=== PATIENT | male | born 1985 | race Caucasian/White ===

== ENCOUNTER 2022-09-29 02:22 | Emergency (ER) | payer OTHER, SELFPAY ==
[2022-09-29 02:36] VITALS: BP 135/82; PULSE 106; RESP 18; TEMP 36.6; O2SAT 98; BMI 27.2
--- NOTE | 2022-09-29 04:03 | W.ED.WOUNDLC ---
HPI - Wound/Laceration General: Chief Complaint: Wound/Laceration Stated Complaint: Left hand injury Time Seen by Provider: 09/29/22 02:49 Source: patient History of Present Illness: 37-year-old male who was using a razor knife earlier in the evening. He sliced the dorsum of his left hand in the webspace. Bleeding is controlled. Tetanus is up-to-date as of 2 years ago. Onset (ago): hour(s) Extremity Location: Left: hand Place: home Patient tetanus UTD: Yes Context: accidental Associated symptoms: Denies chills, fever(s), foreign body sensation, inability to move or nausea Review of Systems Const: Denies: fever(s) or chills GI: Denies: nausea Physical Exam Const: COMMON NORMALS: no acute distress and alert HENMT: COMMON NORMALS: normocephalic and atraumatic HEAD & SCALP: normocephalic and atraumatic Eye: COMMON NORMALS: Equal, round and reactive pupils present and EOMs intact bilaterally PUPIL: Yes Equal, round and reactive pupils present Neck/C-Spine: COMMON NORMALS: full ROM Chest: CHEST: Yes Symmetrical chest wall rise Resp: COMMON NORMALS: normal respiratory effort and No use of accessory muscles Cardio: COMMON NORMALS: regular rate and regular rhythm RATE: regular rate RHYTHM: regular rhythm Extremity: NARRATIVE EXTREMITY EXAM: Movement of the thumb including abduction abduction flexion extension are intact Neuro: SENSORIUM/ORIENTATION: Yes alert OTHER: Sensation intact distally Psych: COMMON NORMALS: cooperative Skin: NARRATIVE SKIN EXAM: Sick centimeter laceration to the dorsal webspace of the left hand. Bleeding is controlled. Linear laceration. Procedures Laceration Laceration 1: Site: hand Side (If applicable): left Size (cm): 6 Description: linear Depth: simple, single layer Local Anesthetic: lidocaine 1% Amount of anesthesia used (mL): 6 Pre-repair: wound explored and irrigated extensively Skin layer closed with: nylon Size (cm): 4-0 Number of sutures: 7 Technique: simple, interrupted Course Vital Signs: Vital signs: Vital Signs Temperature 98 F 09/29/22 02:36 Pulse Rate 106 H 09/29/22 02:36 Respiratory Rate 18 09/29/22 02:36 Blood Pressure 135/82 09/29/22 02:36 Pulse Oximetry 98 09/29/22 02:36 MDM - Wound/Laceration Medical Decision Making Laceration repaired. No complication. Tetanus is up-to-date. Instructions given. Discharge Plan Discharge Patient Disposition: Home Clinical Impression: Laceration of hand, left Condition: Stable Discharge Orders: Discharge ED (Routine); Ordered 09/29/22 Ordered By: Hernan Sol Patient Instructions: Laceration (ED) Activity Restrictions/Additional Instructions: Keep dry for the next 12 hours. Wash with soap and running water. Do not soak. Sutures out in 7 to 10 days by healthcare provider. Return for worsening pain, swelling, drainage, other concerning symptoms. Coding Level of Care Code ED Flower Machine Operator for Rosalba Boss
== END 2022-09-29 03:50 | disposition home or self-care (01) ==
PROVIDERS: Emergency Provider Emergency Medicine
DX: S61.412A Laceration without foreign body of left hand, initial encounter (principal); W26.0XXA Contact with knife, initial encounter
CPT/HCPCS: 12002; 99282

== ENCOUNTER 2022-11-11 06:01 | Emergency (ER) | payer OTHER, SELFPAY ==
[2022-11-11 06:10] VITALS: BP 129/88; PULSE 110; RESP 20; TEMP 36.8; O2SAT 96; BMI 27.3
[2022-11-11 06:11] VITALS: BP 129/88; PULSE 106; RESP 16; O2SAT 98
--- NOTE | 2022-11-11 07:00 | XR_ITS ---
WS: [id number] Right knee, 3 views, 11/11/2022 Clinical Data: pain/trauma Comparison: None. Findings: No fractures or dislocations are seen. The joint spaces are normal. The patella is intact. There is s oft tissue swelling over the patella which may represent edema and/or infection.. XR/XR knee RT 3V* [id number] Impression: Soft tissue swelling over the right patella. Kellgren-Ray Classification: NA
--- NOTE | 2022-11-11 07:07 | ED_ITS ---
HPI - Skin/Abscess/Foreign Bdy General: Chief complaint: Skin/Abscess/Foreign Body Stated complaint: right knee pain Time Seen by Provider: 11/11/22 06:41 Source: patient Mode of arrival: ambulatory History of Present Illness: 37-year-old male presents emergency room complaining of right knee pain. About a week and a half ago he hit it with a sledgehammer when it glanced off of the stake that he was driving in. Some mild redness tenderness and swelling over that area. Said he had a temp at home of up to 102. Knee is painful to palpation and painful if he tries to kneel down on it. Its not had any drainage. He has been ambulatory on it. No previous injury to the knee. MD complaint: lesion Onset (ago): week(s) (1-2) Location: RLE (Knee) Severity: mild Quality: aching Pain Consistency: constant Relieving factors: none Exacerbating factors: palpation Context: other (Direct blow) Associated symptoms: Reports arthralgias and fever(s); Deny chills, cough, itching, myalgias, nausea, rigidity or vomiting Treatments prior to arrival: none Review of Systems Const: Reports: fever(s); Denies: chills ENMT: Denies: throat pain, ear or mastoid pain, nasal discharge or nasal congestion Card: Denies: chest pain, palpitations, irregular heart rhythm, edema, dyspnea on exertion or orthopnea Resp: Denies: dyspnea, productive cough or non-productive cough GI: Denies: abdominal pain, nausea or vomiting : Denies: flank pain, difficulty urinating, dysuria, urinary frequency or urinary urgency Skin/Breast: Denies: rash or pruritus PFSH ED PFSH: Social History (Updated 11/11/22 @ 07:11 by Romel Roman DO) Smoking and tobacco status: current every day smoker e-cigarettes Physical Exam Const: COMMON NORMALS: no acute distress GENERAL APPEARANCE: cooperative and comfortable ORIENTATION/CONSCIOUSNESS: Yes awake, Yes oriented to person, Yes oriented to place and Yes oriented to time HENMT: COMMON NORMALS: normocephalic, atraumatic and hearing grossly normal bilaterally HEAD & SCALP: normocephalic and atraumatic Lymph: LYMPHATIC: no lymphadenopathy noted and no lymphedema noted Resp: COMMON NORMALS: normal respiratory effort, No retractions, No use of accessory muscles and clear to auscultation bilaterally AUSCULTATION: clear to auscultation bilaterally Cardio: COMMON NORMALS: regular rate, regular rhythm and No murmurs present (Cardio) RATE: regular rate RHYTHM: regular rhythm GI: COMMON NORMALS: Soft to palpation and No hepatosplenomegaly present AUS CULTATION: Yes normoactive bowel sounds PALPATION: Yes Soft to palpation, No Tenderness to palpation present (GI), No Guarding due to palpation present (GI) and Yes No hepatosplenomegaly present Extremity: COMMON NORMALS: normal to inspection, capillary refill normal, no clubbing, cyanosis or edema, no calf tenderness and no pedal edema OTHER: Moderate prepatellar bursal swelling on the right knee with some abrasions no erythema or induration no significant swelling lymph nodes in the popliteal fossa Neuro: SENSORIUM/ORIENTATION: Yes oriented to person, Yes oriented to place and Yes oriented to time Skin: COMMON NORMALS: no rashes or lesions noted GENERAL SKIN EXAM: no rashes or lesions noted Course Vital Signs: Vital signs: Vital Signs Temperature 98.2 F 11/11/22 06:10 Pulse Rate 102 H 11/11/22 08:12 Respiratory Rate 16 11/11/22 06:11 Blood Pressure 129/88 11/11/22 06:11 Pulse Oximetry 98 11/11/22 08:12 Oxygen Delivery Me thod 11/11/22 06:10 MDM - Skin/Abscess/Foreign Bdy Medicial Decision Making No acute fractures on x-ray there is some soft tissue swelling on exam there is some prepatellar bursal swelling there are some abrasions over to relatively minor not fluctuant. Discharge home ice diclofenac can elevate leg short round of cephalexin recheck primary care or Ortho if not improving Medical Records I reviewed the patient's medical records. Lab Data I reviewed the patient's lab results. 11/11/22 07:15 11/11/22 07:15 Radiology Impressions Knee X-Ray 11/11/22 07:00 Impression: Soft tissue swelling over the right patella. Kellgren-Ray Classification: NA Laboratory Results WBC 11.7 10^3/uL (4.0-10.0) H 11/11/22 07:15 RBC 4.78 10^6/uL (4.1-5.3) 11/11/22 07:15 Hgb 13.7 g/dL (11.7-16.6) 11/11/22 07:15 Hct 41.6 % (42.0-52.0) L 11/11/22 07:15 MCV 87.0 fl (80-94) 11/11/22 07:15 MCH 28.7 pg (28.0-34.0) 11/11/22 07:15 MCHC 32.9 g/dL (30.0-36.0) 11/11/22 07:15 RDW 12.8 % (12.1-15.1) 11/11/22 07:15 Plt Count 367 10^3/cmm (130-400) 11/11/22 07:15 MPV 8.2 fL (7.4-10.4) 11/11/22 07:15 Neut % (Auto) 60.3 % 11/11/22 07:15 Lymph % (Auto) 27.7 % 11/11/22 07:15 [place] % (Auto) 8.6 % 11/11/22 07:15 Eos % (Auto) 2.4 % 11/11/22 07:15 Baso % (Auto) 0.7 % 11/11/22 07:15 Neut # (Auto) 7.03 10^3/uL (1.8-7.7) 11/11/22 07:15 Lymph # (Auto) 3.2 10^3/uL (0.8-4.8) 11/11/22 07:15 [place] # (Auto) 1.0 10^3/uL (0.2-0.9) H 11/11/22 07:15 Eos # (Auto) 0.3 10^3/uL (0.0-0.8) 11/11/22 07:15 Baso # (Auto) 0.1 10^3/uL (0.0-0.1) 11/11/22 07:15 Nucleated RBC % (auto) 0 % 11/11/22 07:15 Nucleated RBCs # 0.0 /100WBC 11/11/22 07:15 Sodium 140 mmol/L (136-145) 11/11/22 07:15 Potassium 4.2 mmol/L (3.5-5.1) 11/11/22 07:15 Chloride 104 mmol/L (98-107) 11/11/22 07:15 Carbon Dioxide 28 mmol/L (22-29) 11/11/22 07:15 Anion Gap 12.2 (5-19) 11/11/22 07:15 BUN 14 mg/dL (6-20) 11/11/22 07:15 Creatinine 1.1 mg/dL (0.7-1.2) 11/11/22 07:15 GFR Calculation 75.3 mL/min (90-130) L 11/11/22 07:15 Glucose 106 mg/dL (65-115) 11/11/22 07:15 Calculated Osmolality 291 mOsm/kg (285-295) 11/11/22 07:15 Calcium 8.8 mg/dL (8.5-10.5) 11/11/22 07:15 Discharge Plan Discharge Patient Disposition: Home Clinical Impression: Bursitis, prepatellar, Cellulitis of knee, right Prescriptions: New diclofenac sodium 75 mg tablet,delayed release (DR/EC) 75 mg PO Q12H PRN (Reason: pain) Qty: 20 0RF cephalexin 750 mg capsule 750 mg PO BID 7 Days Qty: 14 0RF Discharge Orders: Discharge ED (Routine); Ordered 11/11/22 Ordered By: Romel Roman Discharge Diet: Usual diet Discharge Activity: Resume usual activity Patient Instructions: Opioid Safety, Pain Management Activity Restrictions/Additional Instructions: Follow-up with your primary care doctor to reevaluate the prepatellar bursitis if not improving with anti-inflammatories if the redness or inflammation increases despite the antibiotics be rechecked. Coding Level of Care Code ED Dental Appliance Mechanic for Rosalba Fwd Exam Comprehensive
[2022-11-11 07:22] LABS: Basophils # 0.1 10^3/uL (0.0-0.1); Basophils % 0.7 %; Eosinophils # 0.3 10^3/uL (0.0-0.8); Eosinophils % 2.4 %; Hematocrit 41.6 % (42.0-52.0); Hemoglobin 13.7 g/dL (11.7-16.6); Lymphocytes # 3.2 10^3/uL (0.8-4.8); Lymphocytes % 27.7 %; Mean Corpuscular HGB Conc 32.9 g/dL (30.0-36.0); Mean Corpuscular Hemoglobin 28.7 pg (28.0-34.0); Mean Platelet Volume 8.2 fL (7.4-10.4); Monocytes % 8.6 %; Neutrophils # 7.03 10^3/uL (1.8-7.7); Neutrophils % 60.3 %; Nucleated Red Blood Cells % 0 %; Platelet Count 367 10^3/cmm (130-400); Red Blood Count 4.78 10^6/uL (4.1-5.3); Red Cell Distribution Width 12.8 % (12.1-15.1); White Blood Count 11.7 10^3/uL (4.0-10.0)
[2022-11-11 07:52] LABS: Anion Gap 12.2 (5-19); Blood Urea Nitrogen 14 mg/dL (6-20); Calcium 8.8 mg/dL (8.5-10.5); Carbon Dioxide 28 mmol/L (22-29); Chloride 104 mmol/L (98-107); Glomerular Filtration Rate 75.3 mL/min (90-130); Glucose 106 mg/dL (65-115); Osmolality Calculated 291 mOsm/kg (285-295); Potassium 4.2 mmol/L (3.5-5.1); Sodium 140 mmol/L (136-145)
[2022-11-11 08:12] VITALS: PULSE 102; O2SAT 98
== END 2022-11-11 08:14 | disposition home or self-care (01) ==
PROVIDERS: Emergency Provider Family Medicine
DX: M70.41 Prepatellar bursitis, right knee (principal); L03.115 Cellulitis of right lower limb; F17.290 Nicotine dependence, other tobacco product, uncomplicated
CPT/HCPCS: 73562; 80048; 85025; 99284

== ENCOUNTER 2023-11-10 12:05 | Emergency (ER) | payer OTHER, SELFPAY ==
[2023-11-10 12:38] VITALS: BP 163/96; PULSE 107; RESP 15; TEMP 36.9; O2SAT 99; BMI 30.7
--- NOTE | 2023-11-10 13:25 | ED_ITS ---
HPI - Wound/Laceration General: Chief Complaint: Wound/Laceration Stated Complaint: laceration left hand Time Seen by Provider: 11/10/23 13:05 Source: patient Mode of arrival: ambulatory Limitations: no limitations History of Present Illness: Patient is a 38-year-old male who presents to ED today for evaluation of a laceration to his left hand/thumb that he sustained just prior to arrival after he was using a saw and accidentally cut the extremity. Bleeding is controlled. His tetanus is up-to-date. He denies numbness, tingling, loss of sensation to his hand or digits. He has no other complaints or injuries at this time. Extremity Location: Left: hand Place: home Patient tetanus UTD: Yes Context: accidental Associated symptoms: Reports no associated symptoms Treatments prior to arrival: bandage Review of Systems Musc: Reports: extremity pain (L hand) Skin/Breast: Reports: other (laceration L hand) Neuro: Denies: numbness in extremities or weakness in extremities [facility] ED PFSH: Social History Smoking and tobacco/nicotine status: current every day tobacco/nicotine user e- cigarettes Physical Exam Const: COMMON NORMALS: no acute distress, average body habitus, no limitations, healthy appearing, alert and well nourished Extremity: COMMON NORMALS: full ROM, capillary refill normal, no joint enlargement, no clubbing, cyanosis or edema and no pedal edema GENERAL: Yes normal exam except as noted LEFT UPPER EXTREMITY: Yes hand & digits (3cm laceration to radial side of L thumb; no bleeding) Left hand and digits: Yes ROM (normal), Yes neurovascular exam (normal) and Yes tendon exam (no tendon involvement noted ) Neuro: COMMON NORMALS: moves all extremities, no focal motor deficits and no sensory deficits noted SENSORIUM/ORIENTATION: Yes alert Skin: TRAUMA: laceration Procedures Laceration Laceration 1: Site: hand Side (If applicable): left Size (cm): 3.0 Description: linear and irregular Depth: simple, single layer Local Anesthetic: lidocaine 1% Amount of anesthesia used (mL): 4.0 Pre-repair: wound explored and irrigated extensively Skin layer closed with: nylon Size (cm): 4-0 Number of sutures: 6 Technique: simple, interrupted Course Vital Signs: Vital signs: Vital Signs Temperature 98.4 F 11/10/23 12:38 Pulse Rate 107 H 11/10/23 12:38 Respiratory Rate 15 11/10/23 12:38 Blood Pressure 163/96 11/10/23 12:38 Pulse Oximetry 99 11/10/23 12:38 Oxygen Delivery Me thod Room Air 11/10/23 12:38 MDM - Wound/Laceration Medical Decision Making Wound was copiously irrigated and repaired as documented. Patient declined XR imaging. Tetanus is up-to-date. Wound care/infection precautions discussed. Differential Diagnosis Likely laceration Medical Records I reviewed the patient's medical records. No radiology studies performed this visit Discharge Plan Discharge Patient Disposition: Home Clinical Impression: Laceration of hand, left Qualifiers: Encounter type: initial encounter Foreign body presence: without foreign body Qualified Code(s): S61.412A - Laceration without foreign body of left hand, initial encounter Condition: Stable Prescriptions: No Action diclofenac sodium 75 mg tablet,delayed release (DR/EC) 75 mg PO Q12H PRN (Reason: pain) Qty: 20 0RF Discharge Orders: Discharge ED (Routine); Ordered 11/10/23 Ordered By: Celina Mcdonough Patient Instructions: Care For Your Stitches (DC), Laceration (DC) Activity Restrictions/Additional Instructions: Keep wound/laceration clean with warm soap and water twice daily. Monitor for signs of infection such as redness, swelling, increased pain, or drainage. Please seek medical re-evaluation if these occur. If you received sutures today these will need to be removed (unless you were told by the provider that they are absorbable). The provider should have discussed with you the length of time until removal-7 DAYS. You may return to the emergency department for this service. Coding Level of Care Code ED Assistant Professor Of Archaeology for Rosalba Boss
[2023-11-10 13:46] VITALS: BP 134/84; PULSE 82; O2SAT 100
== END 2023-11-10 13:51 | disposition home or self-care (01) ==
PROVIDERS: Emergency Provider Physician Assistant
DX: S61.412A Laceration without foreign body of left hand, initial encounter (principal); F17.290 Nicotine dependence, other tobacco product, uncomplicated; W27.0XXA Contact with workbench tool, initial encounter
CPT/HCPCS: 12002; 99282

== ENCOUNTER 2024-04-25 17:32 | Observation (INO) | payer OTHER, BC, MEDICAID, SELFPAY ==
[2024-04-25] VITALS (24 sets, daily range): BP systolic 99–134; BP diastolic 57–91; PULSE 64–80; RESP 14–18; TEMP 36.1–37.2; O2SAT 94–100; BMI 33.5
--- NOTE | 2024-04-25 17:51 | W.ED.WOUNDLC ---
Documented by User: Romel Roman DO 04/26/24 07:01 HPI - Wound/Laceration General: Chief Complaint: Wound/Laceration Stated Complaint: leg lac Time Seen by Provider: 04/25/24 17:42 Source: patient Mode of arrival: ambulatory History of Present Illness: 39-year-old this is male presents to the emergency room after an accident with a skill saw he was using to try to cut a tree branch. He cut through the distal portion of his left upper leg with a skill saw. On arrival he is actively bleeding staff applied a tourniquet in the triage area. He is unsure of his last tetanus he denies any other injury. Onset (ago): minute(s) Place: home Context: accidental Review of Systems Card: Denies: chest pain GI: Denies: abdominal pain PFSH ED PFSH: Social History Smoking and tobacco/nicotine status: current every day tobacco/nicotine user e-cigarettes Physical Exam Const: GENERAL APPEARANCE: cooperative and comfortable ORIENTATION/CONSCIOUSNESS: Yes awake, Yes oriented to person, Yes oriented to place and Yes oriented to time HENMT: COMMON NORMALS: normocephalic, atraumatic and hearing grossly normal bilaterally HEAD & SCALP: normocephalic and atraumatic Resp: COMMON NORMALS: normal respiratory effort, No retractions, No use of accessory muscles and clear to auscultation bilaterally AUSCULTATION: clear to auscultation bilaterally Cardio: COMMON NORMALS: regular rate, regular rhythm and No murmurs present (Cardio) RATE: regular rate RHYTHM: regular rhythm GI: COMMON NORMALS: Soft to palpation and No hepatosplenomegaly present AUSCULTATION: Yes normoactive bowel sounds PALPATION: Yes Soft to palpation, No Tenderness to palpation present (GI), No Guarding due to palpation present (GI) and Yes No hepatosplenomegaly present Extremity: OTHER: Large laceration on the anterior left thigh just proximal to the knee. Does not appear to involve the knee joint itself is entirely proximal to that there is exposed tendon and muscle belly of the quadriceps. Tourniquet is in place when patient arrives in the trauma room. There is no active bleeding there is quite a bit of blood on his clothing clothing was removed tourniquet removed no active bleeding or arterial spurts noted wound was packed with quick clot and a bulky ABD bandage was applied and secured with pressure using Coban. Neuro: SENSORIUM/ORIENTATION: Yes oriented to person, Yes oriented to place and Yes oriented to time Skin: COMMON NORMALS: no rashes or lesions noted GENERAL SKIN EXAM: no rashes or lesions noted Course Vital Signs: Vital signs: Vital Signs Temperature 97.6 F 04/26/24 04:00 Pulse Rate 77 04/26/24 06:08 Respiratory Rate 17 04/26/24 04:00 Blood Pressure 118/74 04/26/24 06:08 Pulse Oximetry 96 04/26/24 06:08 Oxygen Delivery Me thod Room Air 04/25/24 22:54 Oxygen Flow Rate 6 04/25/24 21:38 MDM - Wound/Laceration Medical Decision Making Large laceration to the distal lower leg this based on exam and its apparent depth and extent the superior portion of the patellar tendon of the quadriceps has been severed. There is no apparent vascular injury, no significant bleeding when tourniquet was released. Patient was taken from the trauma room shortly after the wound was packed with quick clot and bandaged with a bulky compression bandage. No active bleeding dorsalis pedis and posterior tibialis pulses intact easily palpable and strong. Patient to CT for CTA of the left lower extremity. Care signed out to Dr. Mireles at change of shift. See final notes for diagnosis and disposition. Dr. Garcia notified and plan for him to take to the OR for washout and closure. Lab Data 04/25/24 17:43 04/25/24 17:58 Radiology Impressions Lower Extremity CTA 04/25/24 17:59 IMPRESSION: 1. Laceration over the anterior portion of the distal thigh involving the anterior portion of the quadriceps muscle with skin defects, soft tissue emphysema and probable small area of active bleeding or small artery damage. Axial series 4, images 47-453. Coronal series 6, images 185-189. 2. Intact superficial femoral artery which is 3.7 cm deep to the posterior aspect of the laceration. ADDENDUM: 04/25/241936 Impression: 3. During the original interpretation, only axial images were available. 4. Now the axial images are no longer available but there are now 5 mm coronal oblique and sagittal oblique images for interpretation. Laboratory Results WBC 12.93 10^3/uL (3.29-11.43) H 04/25/24 17:43 RBC 5.01 10^6/uL (3.85-5.65) 04/25/24 17:43 Hgb 14.60 g/dL (11.27-16.99) 04/25/24 17:43 Hct 42.7 % (37-53) 04/25/24 17:43 MCV 85.2 fl (82-101) 04/25/24 17:43 MCH 29.1 pg (27-33) 04/25/24 17:43 MCHC 34.2 g/dL (30-55) 04/25/24 17:43 RDW 13.2 % (12.1-15.1) 04/25/24 17:43 Plt Count 395 10^3/cmm (157-399) 04/25/24 17:43 MPV 8.7 fL (7.4-10.4) 04/25/24 17:43 Neut % (Auto) 39.7 % 04/25/24 17:43 Lymph % (Auto) 43.5 % 04/25/24 17:43 [place] % (Auto) 11.6 % 04/25/24 17:43 Eos % (Auto) 4.2 % 04/25/24 17:43 Baso % (Auto) 0.8 % 04/25/24 17:43 Neut # (Auto) 5.15 10^3/uL (1.8-7.7) 04/25/24 17:43 Lymph # (Auto) 5.6 10^3/uL (0.8-4.8) H 04/25/24 17:43 [place] # (Auto) 1.5 10^3/uL (0.2-0.9) H 04/25/24 17:43 Eos # (Auto) 0.5 10^3/uL (0.0-0.8) 04/25/24 17:43 Baso # (Auto) 0.1 10^3/uL (0.0-0.1) 04/25/24 17:43 Nucleated RBC % (auto) 0 % 04/25/24 17:43 Nucleated RBCs # 0.0 /100WBC 04/25/24 17:43 PT 13.60 SECONDS (12.1-14.9) 04/25/24 17:58 INR 1.01 (0.8-1.2) 04/25/24 17:58 APTT 25.5 SECONDS (23.9-36.7) 04/25/24 17:58 Sodium 135 mmol/L (136-145) L 04/25/24 17:58 Potassium 3.8 mmol/L (3.5-5.1) 04/25/24 17:58 Chloride 98 mmol/L (98-107) 04/25/24 17:58 Carbon Dioxide 28 mmol/L (22-29) 04/25/24 17:58 Anion Gap 12.8 (5-19) 04/25/24 17:58 BUN 13 mg/dL (6-20) 04/25/24 17:58 Creatinine 1.1 mg/dL (0.7-1.2) 04/25/24 17:58 GFR Calculation 74.5 mL/min (90-130) L 04/25/24 17:58 Glucose 120 mg/dL (65-115) H 04/25/24 17:58 Calculated Osmolality 281 mOsm/kg (285-295) L 04/25/24 17:58 Calcium 8.3 mg/dL (8.5-10.5) L 04/25/24 17:58 Total Bilirubin 0.3 mg/dL (0.15-1.2) 04/25/24 17:58 AST 12 U/L (0-40) 04/25/24 17:58 ALT 15 U/L (0-41) 04/25/24 17:58 Alkaline Phosphatase 77 U/L (40-130) 04/25/24 17:58 Total Protein 6.0 g/dL (6.6-8.7) L 04/25/24 17:58 Albumin 3.7 g/dL (3.5-5.2) 04/25/24 17:58 Globulin 2.3 g/dL (1.3-4.6) 04/25/24 17:58 Discharge Plan Discharge Patient Disposition: Admitted As Inpatient Admit Provider: Alan Garcia Clinical Impression: Laceration Condition: Stable Discharge Diet: Advance as tolerated Discharge Activity: Limit activity as instructed Coding Level of Care Code ED Director Of Gift Planning for Chg Fwd Documented by User: Denis Mireles DO 04/26/24 04:11 HPI - Wound/Laceration General: Chief Complaint: Wound/Laceration Stated Complaint: leg lac Time Seen by Provider: 04/25/24 17:42 PFSH ED PFSH: Social History Smoking and tobacco/nicotine status: current every day tobacco/nicotine user e-cigarettes Course Vital Signs: Vital signs: Vital Signs Temperature 97.6 F 04/26/24 04:00 Pulse Rate 77 04/26/24 06:08 Respiratory Rate 17 04/26/24 04:00 Blood Pressure 118/74 04/26/24 06:08 Pulse Oximetry 96 04/26/24 06:08 Oxygen Delivery Me thod Room Air 04/25/24 22:54 Oxygen Flow Rate 6 04/25/24 21:38 MDM - Wound/Laceration Medical Decision Making Large laceration to the distal lower leg this based on exam and its apparent depth and extent the superior portion of the patellar tendon of the quadriceps has been severed. There is no apparent vascular injury patient was taken from the trauma room shortly after the wound was packed and bandaged to CT for CTA of the left lower extremity. Care signed out to Dr. Mireles at change of shift. See final notes for diagnosis and disposition. Dr. Garcia notified and plan for him to take to the OR for washout and closure. Lab Data 04/25/24 17:43 04/25/24 17:58 Radiology Impressions Lower Extremity CTA 04/25/24 17:59 IMPRESSION: 1. Laceration over the anterior portion of the distal thigh involving the anterior portion of the quadriceps muscle with skin defects, soft tissue emphysema and probable small area of active bleeding or small artery damage. Axial series 4, images 47-453. Coronal series 6, images 185-189. 2. Intact superficial femoral artery which is 3.7 cm deep to the posterior aspect of the laceration. ADDENDUM: 04/25/241936 Impression: 3. During the original interpretation, only axial images were available. 4. Now the axial images are no longer available but there are now 5 mm coronal oblique and sagittal oblique images for interpretation. Laboratory Results WBC 12.93 10^3/uL (3.29-11.43) H 04/25/24 17:43 RBC 5.01 10^6/uL (3.85-5.65) 04/25/24 17:43 Hgb 14.60 g/dL (11.27-16.99) 04/25/24 17:43 Hct 42.7 % (37-53) 04/25/24 17:43 MCV 85.2 fl (82-101) 04/25/24 17:43 MCH 29.1 pg (27-33) 04/25/24 17:43 MCHC 34.2 g/dL (30-55) 04/25/24 17:43 RDW 13.2 % (12.1-15.1) 04/25/24 17:43 Plt Count 395 10^3/cmm (157-399) 04/25/24 17:43 MPV 8.7 fL (7.4-10.4) 04/25/24 17:43 Neut % (Auto) 39.7 % 04/25/24 17:43 Lymph % (Auto) 43.5 % 04/25/24 17:43 [place] % (Auto) 11.6 % 04/25/24 17:43 Eos % (Auto) 4.2 % 04/25/24 17:43 Baso % (Auto) 0.8 % 04/25/24 17:43 Neut # (Auto) 5.15 10^3/uL (1.8-7.7) 04/25/24 17:43 Lymph # (Auto) 5.6 10^3/uL (0.8-4.8) H 04/25/24 17:43 [place] # (Auto) 1.5 10^3/uL (0.2-0.9) H 04/25/24 17:43 Eos # (Auto) 0.5 10^3/uL (0.0-0.8) 04/25/24 17:43 Baso # (Auto) 0.1 10^3/uL (0.0-0.1) 04/25/24 17:43 Nucleated RBC % (auto) 0 % 04/25/24 17:43 Nucleated RBCs # 0.0 /100WBC 04/25/24 17:43 PT 13.60 SECONDS (12.1-14.9) 04/25/24 17:58 INR 1.01 (0.8-1.2) 04/25/24 17:58 APTT 25.5 SECONDS (23.9-36.7) 04/25/24 17:58 Sodium 135 mmol/L (136-145) L 04/25/24 17:58 Potassium 3.8 mmol/L (3.5-5.1) 04/25/24 17:58 Chloride 98 mmol/L (98-107) 04/25/24 17:58 Carbon Dioxide 28 mmol/L (22-29) 04/25/24 17:58 Anion Gap 12.8 (5-19) 04/25/24 17:58 BUN 13 mg/dL (6-20) 04/25/24 17:58 Creatinine 1.1 mg/dL (0.7-1.2) 04/25/24 17:58 GFR Calculation 74.5 mL/min (90-130) L 04/25/24 17:58 Glucose 120 mg/dL (65-115) H 04/25/24 17:58 Calculated Osmolality 281 mOsm/kg (285-295) L 04/25/24 17:58 Calcium 8.3 mg/dL (8.5-10.5) L 04/25/24 17:58 Total Bilirubin 0.3 mg/dL (0.15-1.2) 04/25/24 17:58 AST 12 U/L (0-40) 04/25/24 17:58 ALT 15 U/L (0-41) 04/25/24 17:58 Alkaline Phosphatase 77 U/L (40-130) 04/25/24 17:58 Total Protein 6.0 g/dL (6.6-8.7) L 04/25/24 17:58 Albumin 3.7 g/dL (3.5-5.2) 04/25/24 17:58 Globulin 2.3 g/dL (1.3-4.6) 04/25/24 17:58 All radiology interpretation(s) finalized by discharge Discharge Plan Discharge Patient Disposition: Admitted As Inpatient Admit Provider: Alan Garcia Clinical Impression: Laceration Condition: Stable Discharge Diet: Advance as tolerated Discharge Activity: Limit activity as instructed Coding Level of Care Code ED Director Of Gift Planning for Rosalba Boss
[2024-04-25] MEDS: sodium chloride 0.9% 1,000 ML 999 ML IV (17:59)
[2024-04-25] MEDS: morphine 4 mg/mL SDV 1 mL IVP ×2 (17:59)
--- NOTE | 2024-04-25 17:59 | CTR_ITS ---
PROCEDURE INFORMATION: Exam: CTA Left Lower Extremity With Contrast Exam date and time: 04/25/2024 5:47 PM Age: 39 years old Clinical indication: Injury or trauma; Other: Lact; Other: Cut by saw; Additional info: Trauma laceration to left distal thigh anteriorly, cta left lower extremity TECHNIQUE: Imaging protocol: Computed tomographic angiography of the left lower extremity with contrast. 3D rendering (Not supervised by radiologist): MIP and/or 3D reconstructed images were created by the technologist. Radiation optimization: All CT scans at this facility use at least one of these dose optimization techniques: automated exposure control; mA and/or kV adjustment per patient size (includes targeted exams where dose is matched to clinical indication); or iterative reconstruction. Contrast material: OMNI 350; Contrast volume: 100 ml; Contrast route: INTRAVENOUS (IV); COMPARISON: No relevant prior studies available. RADIATION DOSE METRICS: Total DLP (mGy-cm): 680.49 FINDINGS: Left femoral/popliteal arteries: No occlusion or significant stenosis. Left infrapopliteal arteries: No occlusion or significant stenosis. Bones/joints: No acute fracture. No dislocation. Soft tissues: Laceration over the anterior portion of the distal thigh involving the anterior portion of the quadriceps muscle with skin defects, soft tissue emphysema and probable small area of active bleeding or small artery damage. Axial series 4, images 47-453. Coronal series 6, images 185-189. Other findings: Intact superficial femoral artery which is 3.7 cm deep to the posterior aspect of the laceration. CT/CT angio [facility] [address] IMPRESSION: 1. Laceration over the anterior portion of the distal thigh involving the anterior portion of the quadriceps muscle with skin defects, soft tissue emphysema and probable small area of active bleeding or small artery damage. Axial series 4, images 47-453. Coronal series 6, images 185-189. 2. Intact superficial femoral artery which is 3.7 cm deep to the posterior aspect of the laceration.
[2024-04-25] MEDS: iohexol 350 mg/mL 500 mL Btl (per mL) IV (18:04)
[2024-04-25] MEDS: ceFAZolin 1,000 MG in sodium chloride 0.9% (plus) 50 ML 100 MG IV ×2 (18:11→19:59)
[2024-04-25 18:12] LABS: Basophils # 0.1 10^3/uL (0.0-0.1); Basophils % 0.8 %; Eosinophils # 0.5 10^3/uL (0.0-0.8); Eosinophils % 4.2 %; Hematocrit 42.7 % (37-53); Lymphocytes # 5.6 10^3/uL (0.8-4.8); Lymphocytes % 43.5 %; Mean Corpuscular HGB Conc 34.2 g/dL (30-55); Mean Corpuscular Hemoglobin 29.1 pg (27-33); Mean Corpuscular Volume 85.2 fl (82-101); Mean Platelet Volume 8.7 fL (7.4-10.4); Monocytes # 1.5 10^3/uL (0.2-0.9); Monocytes % 11.6 %; Neutrophils # 5.15 10^3/uL (1.8-7.7); Neutrophils % 39.7 %; Nucleated Red Blood Cells % 0 %; Platelet Count 395 10^3/cmm (157-399); Red Blood Count 5.01 10^6/uL (3.85-5.65); Red Cell Distribution Width 13.2 % (12.1-15.1); White Blood Count 12.93 10^3/uL (3.29-11.43)
[2024-04-25] MEDS: tetanus-dipt-pertussis 0.5 mL SDV IM (18:12)
[2024-04-25] MEDS: LORazepam 2 mg/mL INJ 10 mL MDV IVP (18:17)
--- NOTE | 2024-04-25 18:25 | PC.NURSE ---
FAMILY CAME THRU FRONT DOOR YELLING THEY NEED HELP. NURSE RAN OUTSIDE WITH WHEELCHAIR, PT IN FRONT SEAT OF CAR WITH LARGE LACERATION TO LEFT UPPER LEG. PT STATED HE COULD NOT MOVE HIS LEG, PT WAS BLEEDING FROM SITE. NURSE PUT TOURNIQUET ON AT 1730, NURSE AND STAFF PUT PT IN WHEELCHAIR. DR. JEAN-BAPTISTE REMOVED TOURNIQUET AT 1738.
[2024-04-25 18:26] LABS: INR 1.01 (0.8-1.2)
[2024-04-25 18:27] LABS: Partial Thromboplastin Time 25.5 SECONDS (23.9-36.7)
[2024-04-25 18:31] LABS: Alanine Aminotransferase 15 U/L (0-41); Albumin Level 3.7 g/dL (3.5-5.2); Alkaline Phosphatase 77 U/L (40-130); Anion Gap 12.8 (5-19); Aspartate Amino Transferase 12 U/L (0-40); Blood Urea Nitrogen 13 mg/dL (6-20); Calcium 8.3 mg/dL (8.5-10.5); Carbon Dioxide 28 mmol/L (22-29); Chloride 98 mmol/L (98-107); Creatinine Clr Calc Pharmacy 91.1168; Globulin 2.3 g/dL (1.3-4.6); Glomerular Filtration Rate 74.5 mL/min (90-130); Glucose 120 mg/dL (65-115); Osmolality Calculated 281 mOsm/kg (285-295); Potassium 3.8 mmol/L (3.5-5.1); Sodium 135 mmol/L (136-145); Total Bilirubin 0.3 mg/dL (0.15-1.2)
[2024-04-25 19:09] LABS: Slide Review Slide Review Perform
--- NOTE | 2024-04-25 19:43 | ANES.PREANE2 ---
Pre-Anesthetic Assessment Height/Weight: Height 1.75 m Weight 72.575 kg Pulse Resp BP Pulse Ox O2 Del Method 80 18 128/91 94 Room Air 04/25/24 18:30 04/25/24 18:30 04/25/24 18:45 04/25/24 18:30 04/25/24 18:30 Preop Diagnosis: Laceration wound closure Familial anesthetic complications: none Was Beta Royal taken within 24 hours: N/A Was Clonidine taken within 24 hours: N/A Last intake: denies lunch unsure of NPO status RSI. Social Tobacco (vape) Exam clear to auscultation bilaterally sedated from ED Airway Submandibular: within normal limits Dentition: false Comments: Comments: dentures removed unable to assess airway Pulmonary None reported CV/HEM None reported None reported Hepatic None reported GI Gastroesophageal Reflux Disease Metabolic None reported Musc/skel None reported Neuropsych Anxiety Anesthetic Plan ASA status: 2E Medications/Allergies Home Medications Medication Instructions Recorded Confirmed Last Taken Type diclofenac sodium 75 mg 75 mg PO Q12H PRN pain #20 tabs 11/11/22 Unknown Rx tablet,delayed release Allergies Allergy/AdvReac Type Severity Reaction Status Date / Time No Known Allergies Allergy Verified 11/11/22 06:13 [facility] Anesthesia Social History Smoking and tobacco/nicotine status: current every day tobacco/nicotine user e-cigarettes Data Anesthesia 04/25/24 17:43 04/25/24 17:58 Short CBC 04/25/24 Range/Units 17:43 WBC 12.93 H (3.29-11.43) 10^3/uL Hgb 14.60 (11.27-16.99) g/dL Hct 42.7 (37-53) % MCV 85.2 (82-101) fl Plt Count 395 (157-399) 10^3/cmm Neut % (Auto) 39.7 % Neut # (Auto) 5.15 (1.8-7.7) 10^3/uL BMP 04/25/24 17:58 Sodium 135 L Potassium 3.8 Chloride 98 Carbon Dioxide 28 BUN 13 Creatinine 1.1 Glucose 120 H Calcium 8.3 L Liver Function 04/25/24 Range/Units 17:58 Total Bilirubin 0.3 (0.15-1.2) mg/dL AST 12 (0-40) U/L ALT 15 (0-41) U/L Alkaline Phosphatase 77 (40-130) U/L Albumin 3.7 (3.5-5.2) g/dL [facility] 04/25/24 17:58 PT 13.60 INR 1.01 APTT 25.5 Cardiac Studies: No Data to Display
--- NOTE | 2024-04-25 19:48 | P.HP_ITS ---
Providers/Chief Complaint 2 Chief Complaint: leg lac History of Present Illness Isac Oliver is a 39 year old male cut his leg with a table saw. ER consult with me to irrigate debride and closed. Review of Systems 2 Narrative: Patient seen and 70 meds at this time to get a review of systems. Medications/Allergies Home Medications Medication Instructions Recorded Confirmed Last Taken Type diclofenac sodium 75 mg 75 mg PO Q12H PRN pain #20 tabs 11/11/22 Unknown Rx tablet,delayed release Allergies Allergy/AdvReac Type Severity Reaction Status Date / Time No Known Allergies Allergy Verified 11/11/22 06:13 PFSH Acute 2 PFSH: Social History Smoking and tobacco/nicotine status: current every day tobacco/nicotine user e- cigarettes Vitals/I&O/Wt Last Vital Signs Pulse 80 04/25/24 18:30 Resp 18 04/25/24 18:30 BP 128/91 04/25/24 18:45 Pulse Ox 94 04/25/24 18:30 O2 Del Method Room Air 04/25/24 18:30 04/25/24 04/25/24 04/25/24 06:59 14:59 22:59 Intake Total 50 / 50 Balance 50 / 50 Weight last 48 hrs Weight 160 lb Physical Exam 2 Narrative: Patient too sedated to get an exam. Data 04/25/24 17:43 04/25/24 17:58 A&P Assessment and plan (1) Laceration: Patient has laceration over his left leg. Plan is to irrigate debride and closed. Attestations 2 Medical Necessity Statement*: Open laceration Coding Level of Care Code Acute Code for [facility] Fwd Diagnoses Laceration
[2024-04-25] MEDS: lidocaine-epi 2% PF 1:200,000 20 mL SDV XX (20:38)
--- NOTE | 2024-04-25 20:49 | PM.OP ---
Operative Report Date of procedure: April 25, 2024 Pre-op diagnosis: 6 inch transverse laceration on anterior left thigh(half an inch wide by 1 inch deep) Post-op diagnosis: same Procedure done: 1. Irrigation debridement down to muscle and fascia of 6 inch x 1 inch by half an inch anterior thigh wound 2. Complex closure of wound 6 inches long Surgeon: Alan Garcia DO Procedure: 1. Irrigation debridement down to muscle and fascia of 6 inch x 1 inch by half an inch anterior thigh wound 2. Complex closure of wound 6 inches long Patient brought the op suite after undergoing anesthesia was placed in the supine position. All his impingement well-padded patient's prepped draped also fashion. Wound was identified. There is some jagged edges on the medial and lateral sides were debrided but otherwise the wound was clean. The muscle had a laceration and on the vastus medialis did not go all the way through the muscle. Part of this muscle was debrided. All muscle had good contractility. Wound was then irrigated with a liter of saline. Wound was relatively clean to begin with there is no foreign debris in the wound at the beginning of the case. Close wound was thoroughly irrigated the layered closure occurred. This was done by using 0 Vicryl to close the anterior thigh fascia followed by 2-0 Vicryl to close the skin and shalom to close the skin. Sterile dressings were applied patient was transferred to the PACU in stable condition.
[2024-04-25] MEDS: sodium chloride 0.9% 1,000 ML 100 ML IV (22:51)
[2024-04-25 23:05] LABS: Glucose Point of Care 111 mg/dL (70-110)
[2024-04-26] VITALS (8 sets, daily range): BP systolic 107–125; BP diastolic 65–75; PULSE 17–96; RESP 16–17; TEMP 36.3–36.6; O2SAT 96–99
--- NOTE | 2024-04-26 05:09 | PC.NURSE ---
Addendum entered by Karuna Acevedo RN 04/26/24 05:27: PACU nurse stated the below on the telephone while giving report. Upon brining the patient to his room, the PACU nurse verbally stated that the patient also received a small amount of Fentanyl. Original Note: PACU nurse states that patient received 6 mg Ativan and 8 mg Morphine in ED and states that the patient received Narcan in PACU with no improvement.
--- NOTE | 2024-04-26 06:25 | PC.NURSE ---
Patient has 636 ml on bladder scan. Patient has been lethargic and minimally responsive since arriving on the floor. Patient has not voided since arriving on the floor. At this time, patient is now easily arousable, alert, oriented, and verbal. Patient educated that his bladder is full and that he needs to attempt to void. Patient given urinal and verbalized understanding.
--- NOTE | 2024-04-26 07:07 | PC.NURSE ---
Patient unable to void. Patient educated that it is possible that he might need a temporary catheter to drain his bladder. Patient states that is absolutely not happening. Let me try again.
--- NOTE | 2024-04-26 07:22 | ANE.PACU2 ---
Inpatient post-anesthesia follow up: Airway intact: Yes Vital signs: Temperature 97.8 F Pulse Rate 95 Respiratory Rate 17 Blood Pressure 112/66 Pulse Oximetry 97 Oxygen Delivery Me thod Room Air Oxygen Flow Rate 6 Fraction of Inspir ed Oxygen Hydration adequate: Yes Nausea and vomiting: No Pain level: 2 Mental status: Baseline
--- NOTE | 2024-04-26 08:19 | P.DS_ITS ---
Discharge Providers Date of Admission: 04/25/24 22:12 Date of Discharge: April 26, 2024 Attending Provider at Admission: Alan Garcia DO Attending Provider at Discharge: Alan Garcia DO Diagnoses at Discharge Discharge Diagnosis (1) Laceration: Status: Acute Reason for Visit Reason for Visit: leg lac Physical Exam 2 Narrative: Patient sitting up pain controlled Discharge Data Studies Completed and Pending Completed Studies During Hospitalization Category Date Time Status CTA lower extremity bilateral [[place] [address]] Cat Scan 04/25/24 17:59 Completed Stat Pending at discharge Category Date Time Status CTA lower extremity [place] [address]] Cat Scan 04/25/24 17:39 Taken Stat Radiology Impressions Lower Extremity CTA 04/25/24 17:59 IMPRESSION: 1. Laceration over the anterior portion of the distal thigh involving the anterior portion of the quadriceps muscle with skin defects, soft tissue emphysema and probable small area of active bleeding or small artery damage. Axial series 4, images 47-453. Coronal series 6, images 185-189. 2. Intact superficial femoral artery which is 3.7 cm deep to the posterior aspect of the laceration. ADDENDUM: 04/25/241936 Impression: 3. During the original interpretation, only axial images were available. 4. Now the axial images are no longer available but there are now 5 mm coronal oblique and sagittal oblique images for interpretation. Laboratory Results WBC 12.93 10^3/uL (3.29-11.43) H 04/25/24 17:43 RBC 5.01 10^6/uL (3.85-5.65) 04/25/24 17:43 Hgb 14.60 g/dL (11.27-16.99) 04/25/24 17:43 Hct 42.7 % (37-53) 04/25/24 17:43 MCV 85.2 fl (82-101) 04/25/24 17:43 MCH 29.1 pg (27-33) 04/25/24 17:43 MCHC 34.2 g/dL (30-55) 04/25/24 17:43 RDW 13.2 % (12.1-15.1) 04/25/24 17:43 Plt Count 395 10^3/cmm (157-399) 04/25/24 17:43 MPV 8.7 fL (7.4-10.4) 04/25/24 17:43 Neut % (Auto) 39.7 % 04/25/24 17:43 Lymph % (Auto) 43.5 % 04/25/24 17:43 Navarro % (Auto) 11.6 % 04/25/24 17:43 Eos % (Auto) 4.2 % 04/25/24 17:43 Baso % (Auto) 0.8 % 04/25/24 17:43 Neut # (Auto) 5.15 10^3/uL (1.8-7.7) 04/25/24 17:43 Lymph # (Auto) 5.6 10^3/uL (0.8-4.8) H 04/25/24 17:43 [place]arro # (Auto) 1.5 10^3/uL (0.2-0.9) H 04/25/24 17:43 Eos # (Auto) 0.5 10^3/uL (0.0-0.8) 04/25/24 17:43 Baso # (Auto) 0.1 10^3/uL (0.0-0.1) 04/25/24 17:43 Nucleated RBC % (auto) 0 % 04/25/24 17:43 Nucleated RBCs # 0.0 /100WBC 04/25/24 17:43 PT 13.60 SECONDS (12.1-14.9) 04/25/24 17:58 INR 1.01 (0.8-1.2) 04/25/24 17:58 APTT 25.5 SECONDS (23.9-36.7) 04/25/24 17:58 Sodium 135 mmol/L (136-145) L 04/25/24 17:58 Potassium 3.8 mmol/L (3.5-5.1) 04/25/24 17:58 Chloride 98 mmol/L (98-107) 04/25/24 17:58 Carbon Dioxide 28 mmol/L (22-29) 04/25/24 17:58 Anion Gap 12.8 (5-19) 04/25/24 17:58 BUN 13 mg/dL (6-20) 04/25/24 17:58 Creatinine 1.1 mg/dL (0.7-1.2) 04/25/24 17:58 GFR Calculation 74.5 mL/min (90-130) L 04/25/24 17:58 Glucose 120 mg/dL (65-115) H 04/25/24 17:58 POC Glucose 111 mg/dL (70-110) H 04/25/24 22:53 Calculated Osmolality 281 mOsm/kg (285-295) L 04/25/24 17:58 Calcium 8.3 mg/dL (8.5-10.5) L 04/25/24 17:58 Total Bilirubin 0.3 mg/dL (0.15-1.2) 04/25/24 17:58 AST 12 U/L (0-40) 04/25/24 17:58 ALT 15 U/L (0-41) 04/25/24 17:58 Alkaline Phosphatase 77 U/L (40-130) 04/25/24 17:58 Total Protein 6.0 g/dL (6.6-8.7) L 04/25/24 17:58 Albumin 3.7 g/dL (3.5-5.2) 04/25/24 17:58 Globulin 2.3 g/dL (1.3-4.6) 04/25/24 17:58 Vitals Last Vital Signs Temp 97.8 F 04/26/24 07:01 Pulse 95 04/26/24 07:01 Resp 17 04/26/24 07:01 BP 112/66 04/26/24 07:01 Pulse Ox 97 04/26/24 07:01 O2 Del Method Room Air 04/25/24 22:54 O2 Flow Rate 6 04/25/24 21:38 Discharge Plan Discharge Patient Disposition: Home Condition: Stable Prescriptions: No Action No Known Home Medications Discharge Orders: Discharge Order (Routine); Ordered 04/25/24 Ordered By: Alan Garcia Referrals: Alan Garcia, DO [Physician] - Discharge Diet: Advance as tolerated Discharge Activity: Limit activity as instructed Activity Restrictions/Additional Instructions: Keep dressing clean and dry for the next 48 hours. After this change dressing as needed Okay to shower keep dressing dry. Once dressing is off okay to shower do not put water directly on the wound with soap and water around the wound to clean it Follow-up in orthopedic clinic in 2 weeks Call clinic if wound has any active purulence or bony smells or increased redness Partial weightbearing. Discharge Attestations Time Spent in Discharge Care*: less than 30 min Quality Metrics Clinical Quality Measures [ No reported AMI, CVA or VTE this stay] Coding Level of Care Code Acute Code for Chg Fwd Diagnoses Laceration
--- NOTE | 2024-04-26 09:18 | PC.CHAP ---
Pastoral Care Encounter/Spiritual Assessment Type of Contact [] Declined humanities instructor visit [] Patient/Family/Request visit [] Outpatient visit [] Follow-up visit [] Physician referral [] Code/Alert [x] Routine visit [] Staff referral [] Actively dying [] Patient sleeping [] Family support [] [] Out of room [] Palliative care [] [] Receiving care in room [] Pre-surgical visit [] Trauma [] Long length of stay [] ICU visit [] Other: Relational/Emotional Strength [x] Patient feels connected with others/family/visitors/staff [] Distress [] Loneliness/isolation [] Abandonment Spirituality of Patient [] Person of Marilyn [] Attends Alevism of their Marilyn [x] Believes in Prayer [] Reads Bible or Moravian materials [] There are Spiritual issues to be addressed Demurrage Clerk Interventions [x] Prayer [x] Active listening [] Non-anxious presence [x] Spiritual/emotional support [] Crisis/trauma care [] Spiritual counseling [] Bereavement support [] Provided bereavement packet [] Provided Bible/devotional materials [] Provided toy/stuffed animal, coloring book to patient or family member [] Provided Communion [] Anointing/[place] [] Salvation [x] Completed spiritual assessment [] Other: Impact on Illness or Injury [] Angry [] Fearful [] Anxious [] Often cries [] Exhaustion [] Unable to work [] Unable to attend latter-day [] Unable to walk/stand [] Unable to read [] Unable to drive [] Unable to eat/drink [] Unable to sleep [] Unable to be with family [] Patient intubated [] Other: Summary Time spent with patient 5 min
--- NOTE | 2024-04-26 09:57 | PC.SOCIAL ---
DME: Patient has DC orders. Luis dutta/ JOSE LUIS reports patient will need crutches for DC. CM to room and spoke to patient. He goes to [place] for his PCP. [facility] Choice sheet completed and placed in chart. Called [place] / ELANA and she will get equipment ordered. [place] / [place] calls CM back and reports that [facility] does have crutches in stock and patient can run by @ DC and clam picker. He will need to ask for [employer] if he has any difficulty. CM back to room and updated patient that he can clam picker his crutches today. Patient is moving about room independently and verbalizes understanding.
--- NOTE | 2024-04-26 12:47 | PC.SOCIAL ---
DME Faxed Crutches order and [facility] Paperwork to [facility] @ this time.
== END 2024-04-26 11:00 | disposition home or self-care (01) ==
LOC: ER 17:57 → OR 19:22 → MEDSURG 22:13
PROVIDERS: Admitting Provider Orthopaedic Surgery; Emergency Provider Family Medicine; Visit Provider Orthopaedic Surgery
PROC: (CPT 13121; principal; 2024-04-25 20:00)
DX: S71.112A Laceration without foreign body, left thigh, initial encounter (principal); W31.2XXA Contact with powered woodworking and forming machines, initial encounter; Z23 Encounter for immunization; F17.290 Nicotine dependence, other tobacco product, uncomplicated
CPT/HCPCS: 13121; 13122; 36416; 51798; 73706; 80053; 82962; 85025; 85610; 85730; 90471; 90715; 96365; 96366; 96375; 96376; 97161; 99285; 99291; G0378; J0131; J0330; J0690; J1100; J1885; J2060; J2250; J2270; J2405; J2704; J3010; J3490; J7030; Q9967

== ENCOUNTER → 2024-05-05 15:45 | Outpatient (BNVA) | payer OTHER, SELFPAY | PROVIDERS: Visit Provider Orthopaedic Surgery | DX: S71.112A Laceration without foreign body, left thigh, initial encounter (principal); W27.0XXA Contact with workbench tool, initial encounter; Y93.H2 Activity, gardening and landscaping | CPT/HCPCS: 99024 ==